=== PATIENT | male | born 1985 | race Caucasian/White ===

== ENCOUNTER 2020-03-13 16:15 | Emergency (ER) | payer OTHER ==
[~2020-03-13] VITALS: Ht 175.3 cm; Wt 93.6 kg
[2020-03-13] MEDS ORDERED: OMEP40CA97 PO (16:28)
[2020-03-13 18:18] LABS: BASO # 0.1 10^3/uL (0.0-0.2); BASO % 0.8 % (0.0-1.0); EOS # 0.2 10^3/uL (0.0-0.5); EOS % 2.7 % (0.0-3.0); HEMATOCRIT 44.8 % (42.0-52.0); HEMOGLOBIN 14.9 g/dl (13.5-17.5); LYMPH # 4.1 10^3/uL (1.5-5.0); LYMPH % 47.4 % (24.0-44.0); MEAN CORPUSCULAR HEMOGLOBIN 29.9 pg (27.0-33.0); MEAN CORPUSCULAR HGB CONC 33.3 g/dl (32.0-36.5); MONO # 0.6 10^3/uL (0.0-0.8); MONO % 7.4 % (0.0-5.0); NEUTROPHILS # 3.6 10^3/uL (1.5-8.5); NEUTROPHILS % 41.5 % (36.0-66.0); PLATELET COUNT, AUTOMATED 313 10^3/uL (150-450); RED BLOOD COUNT 4.98 10^6/uL (4.30-6.10); WHITE BLOOD COUNT 8.6 10^3/uL (4.0-10.0)
[2020-03-13 18:50] LABS: ALBUMIN 4.5 GM/DL (3.2-5.2); BILIRUBIN,DIRECT 0.1 MG/DL (0.0-0.2); BILIRUBIN,TOTAL 0.4 MG/DL (0.2-1.0); TOTAL PROTEIN 7.3 GM/DL (6.4-8.2)
[2020-03-13] MEDS ORDERED: PANTOPRAZOLE 40MG VIAL (C9113 PER 1) IV ONE (19:45)
[2020-03-13] MEDS ORDERED: CARA1TAB6 PO (20:16)
[2020-03-13 21:11] VITALS: BP 132/86
== END 2020-03-13 21:12 | disposition home or self-care (01) ==
LOC: M ED 16:15
DX: R10.12 Left upper quadrant pain (principal)
CPT/HCPCS: 80047; 80076; 81001; 83690; 85025; 96374; 99284; C9113

== ENCOUNTER 2020-09-25 12:11 | Day surgery (SDC) | payer OTHER ==
[~2020-09-25] VITALS: Ht 175.3 cm; Wt 92.0 kg
[~2020-09-25 12:11] MED LIST: CARA1TAB6 PO; NS 1,000 ML IV ONE; OMEP40CA4 PO
[2020-09-25] MEDS ORDERED: fentaNYL 100 MCG/2 ML INJECTION (J3010) As Ordered ONE (15:03)
--- NOTE | 2020-09-25 15:26 | ROOR ---
Patient Name: Javad Garcia Procedure Date: 09/25/2020 3:05 PM Date of : 1985 Age: 35 Room: [facility] Gender: Male Note Status: Finalized Procedure: Upper GI endoscopy Indications: Heartburn, Chronic cough Providers: Albin Jauregui MD Referring MD: RALPH BRIONES MD Requesting Provider: Medicines: Monitored Anesthesia Care Complications: No immediate complications. Procedure: Pre-Anesthesia Assessment: - The heart rate, respiratory rate, oxygen saturations, blood pressure, adequacy of pulmonary ventilation, and response to care were monitored throughout the procedure. The Endoscope was introduced through the mouth, and advanced to the second part of duodenum. The upper GI endoscopy was accomplished without difficulty. The patient tolerated the procedure well. Findings: Mildly severe esophagitis was found at the gastroesophageal junction with one small inflammed nodularity. Biopsies were taken with a cold forceps for histology. The exam of the esophagus was otherwise normal. The entire examined stomach was normal. The examined duodenum was normal. Biopsies were taken with a cold forceps in the middle third of the esophagus, in the gastric antrum and in the second portion of the duodenum for histology. Impression: - Z line at 41 cm. Mildly severe reflux esophagitis with a small inflammatory appearing nodularity. Biopsied. - Normal stomach. - Normal examined duodenum. - Biopsies were taken with a cold forceps for histology in the middle third of the esophagus, in the gastric antrum and in the second portion of the duodenum. Recommendation: - Await pathology results. - Telephone endoscopist for pathology results in 2 weeks. - Follow an antireflux regimen. - Continue present medications. Procedure Code(s): --- Professional --- 02858, Esophagogastroduodenoscopy, flexible, transoral; with biopsy, single or multiple Diagnosis Code(s): --- Professional --- R05, Cough R12, Heartburn K22.8, Other specified diseases of esophagus K21.0, Gastro-esophageal reflux disease with esophagitis CPT copyright 2019 [employer]. All rights reserved. The codes documented in this report are preliminary and upon business machines teacher review may be revised to meet current compliance requirements. Albin Jauregui MD Albin Jauregui MD 09/25/2020 3:26:09 PM Electronically signed by Albin Jauregui MD Number of Addenda: 0 Note Initiated On: 09/25/2020 3:05 PM Estimated Blood Loss: Estimated blood loss: none.
[2020-09-25] MEDS ORDERED: propofoL 200 MG/20 ML VIAL As Ordered ONE (15:36)
--- NOTE | 2020-09-25 15:52 | ROOR ---
Patient Name: Javad Garcia Procedure Date: 09/25/2020 3:06 PM Date of : 1985 Age: 35 Room: [id number] Gender: Male Note Status: Finalized Procedure: Colonoscopy Indications: Screening in patient at increased risk: Colorectal cancer in father before age 60 Providers: Albin Jauregui MD Referring MD: RALPH BRIONES MD Requesting Provider: Medicines: Monitored Anesthesia Care Complications: No immediate complications. Procedure: Pre-Anesthesia Assessment: - The heart rate, respiratory rate, oxygen saturations, blood pressure, adequacy of pulmonary ventilation, and response to care were monitored throughout the procedure. The Colonoscope was introduced through the anus and advanced to the cecum, identified by appendiceal orifice and ileocecal valve. The colonoscopy was performed without difficulty. The patient tolerated the procedure well. The quality of the bowel preparation was fair. Findings: The perianal and digital rectal examinations were normal. Retroflexion in the right colon was performed. The colon (entire examined portion) appeared normal. Impression: - Preparation of the colon was suboptimal/fair. - Small internal hemorrhoids. - The entire colon is otherwise normal. - No specimens collected. Recommendation: - Repeat colonoscopy in 3 years for screening purposes and because the bowel preparation was suboptimal. Procedure Code(s): --- Professional --- 51647, Colonoscopy, flexible; diagnostic, including collection of specimen(s) by brushing or washing, when performed (separate procedure) Diagnosis Code(s): --- Professional --- Z80.0, Family history of malignant neoplasm of digestive organs CPT copyright 2019 [employer]. All rights reserved. The codes documented in this report are preliminary and upon horticultural specialty grower review may be revised to meet current compliance requirements. Albin Jauregui MD Albin Jauregui MD 09/25/2020 3:51:41 PM Electronically signed by Albin Jauregui MD Number of Addenda: 0 Note Initiated On: 09/25/2020 3:06 PM Estimated Blood Loss: Estimated blood loss: none.
[2020-09-25 16:05] VITALS: BP 137/74
== END 2020-09-25 16:07 | disposition home or self-care (01) ==
LOC: M OPP 12:11
PROVIDERS: ATTEND Internal Medicine Gastroenterology
DX: Z12.11 Encounter for screening for malignant neoplasm of colon (principal); Z80.0 Family history of malignant neoplasm of digestive organs; K22.8 Other specified diseases of esophagus; K21.00 Gastro-esophageal reflux disease with esophagitis, without bleeding; R12 Heartburn
CPT/HCPCS: 43239; 45378; 88305; J3010

== ENCOUNTER 2021-09-12 02:07 | Emergency (ER) | payer OTHER ==
[~2021-09-12] VITALS: Ht 175.3 cm; Wt 99.9 kg
[~2021-09-12 02:07] MED LIST changes: -NS 1,000 ML IV ONE
[2021-09-12 02:09] VITALS: BP 130/80
[2021-09-12] MEDS ORDERED: PEPT262T2 PO (02:24)
[2021-09-12 05:11] LABS: BASO # 0.1 10^3/uL (0.0-0.2); BASO % 0.5 % (0.0-1.0); EOS # 0.1 10^3/uL (0.0-0.5); EOS % 0.7 % (0.0-3.0); HEMATOCRIT 45.2 % (42.0-52.0); HEMOGLOBIN 15.4 g/dl (13.5-17.5); LYMPH # 2.4 10^3/uL (1.5-5.0); LYMPH % 18.4 % (24.0-44.0); MEAN CORPUSCULAR HEMOGLOBIN 30.1 pg (27.0-33.0); MEAN CORPUSCULAR HGB CONC 34.1 g/dl (32.0-36.5); MEAN CORPUSCULAR VOLUME 88.3 fl (80.0-96.0); MONO # 0.7 10^3/uL (0.0-0.8); MONO % 5.2 % (2.0-8.0); NEUTROPHILS # 9.7 10^3/uL (1.5-8.5); NEUTROPHILS % 74.8 % (36.0-66.0); PLATELET COUNT, AUTOMATED 292 10^3/uL (150-450); RED BLOOD COUNT 5.12 10^6/uL (4.30-6.10); WHITE BLOOD COUNT 12.9 10^3/uL (4.0-10.0)
[2021-09-12 05:32] LABS: ALBUMIN 3.9 GM/DL (3.2-5.2); ALT/SGPT 39 U/L (12-78); AMYLASE 75 U/L (25-115); BILIRUBIN,DIRECT 0.1 MG/DL (0.0-0.2); BILIRUBIN,TOTAL 0.3 MG/DL (0.2-1.0); BLOOD UREA NITROGEN 12 MG/DL (7-18); CALCIUM LEVEL 9.5 MG/DL (8.5-10.1); CARBON DIOXIDE LEVEL 27 MEQ/L (21-32); CHLORIDE LEVEL 110 MEQ/L (98-107); CREATININE FOR GFR 0.97 MG/DL (0.70-1.30); GLOMERULAR FILTRATION RATE > 60.0 (>60); GLUCOSE, FASTING 111 MG/DL (70-100); LIPASE 167 U/L (73-393); POTASSIUM SERUM 4.7 MEQ/L (3.5-5.1); SODIUM LEVEL 143 MEQ/L (136-145)
[2021-09-12] MEDS ORDERED: GI COCKTAIL 50ML BTL(HYOSCYAMINE/MAALOX/LIDOCAINE VISCOUS)(1:3:1) PO ONE (05:40)
== END 2021-09-12 06:17 | disposition home or self-care (01) ==
LOC: M ED 02:07
DX: K52.9 Noninfective gastroenteritis and colitis, unspecified (principal); K21.9 Gastro-esophageal reflux disease without esophagitis; Z79.899 Other long term (current) drug therapy; Z87.19 Personal history of other diseases of the digestive system; Z98.890 Other specified postprocedural states

== ENCOUNTER 2021-10-19 10:52 | Inpatient (IN) | payer OTHER ==
[~2021-10-19] VITALS: Ht 175.3 cm; Wt 96.3 kg
[~2021-10-19 10:52] MED LIST changes: +PEPT262T2 PO
[2021-10-19] MEDS ORDERED: PRIS1TAB PO (11:49)
[2021-10-19 11:59] LABS: HEMATOCRIT 40.7 % (42.0-52.0); HEMOGLOBIN 13.8 g/dl (13.5-17.5); MEAN CORPUSCULAR HEMOGLOBIN 30.1 pg (27.0-33.0); MEAN CORPUSCULAR HGB CONC 33.9 g/dl (32.0-36.5); MEAN CORPUSCULAR VOLUME 88.9 fl (80.0-96.0); PLATELET COUNT, AUTOMATED 274 10^3/uL (150-450); RED BLOOD COUNT 4.58 10^6/uL (4.30-6.10); WHITE BLOOD COUNT 5.7 10^3/uL (4.0-10.0)
[2021-10-19 12:22] LABS: RSV AMPLIFICATION NEGATIVE (NEGATIVE)
[2021-10-19 13:01] LABS: BLOOD UREA NITROGEN 9 MG/DL (7-18); CALCIUM LEVEL 8.7 MG/DL (8.5-10.1); CARBON DIOXIDE LEVEL 24 MEQ/L (21-32); CHLORIDE LEVEL 110 MEQ/L (98-107); CREATININE FOR GFR 0.96 MG/DL (0.70-1.30); GLOMERULAR FILTRATION RATE > 60.0 (>60); GLUCOSE, FASTING 112 MG/DL (70-100); SODIUM LEVEL 139 MEQ/L (136-145)
[2021-10-19 13:02] LABS: ACETAMINOPHEN LEVEL < 2.0 UG/ML (10.0-30.0); ALBUMIN 3.7 GM/DL (3.2-5.2); ALT/SGPT 35 U/L (12-78); BILIRUBIN,DIRECT 0.2 MG/DL (0.0-0.2); BILIRUBIN,TOTAL 0.8 MG/DL (0.2-1.0); ETHYL ALCOHOL (ETHANOL) < 0.003 % (0.000-0.010); SALICYLATE LEVEL < 1.7 MG/DL (5.0-30.0); TOTAL PROTEIN 6.4 GM/DL (6.4-8.2)
[2021-10-19 13:04] LABS: AMPHETAMINES LEVEL URINE NEGATIVE (NEGATIVE); BARBITURATES URINE NEGATIVE (NEGATIVE); BENZODIAZEPINES URINE NEGATIVE (NEGATIVE); CANNABINOIDS URINE NEGATIVE (NEGATIVE); COCAINE METABOLITE URINE NEGATIVE (NEGATIVE); METHADONE URINE NEGATIVE (NEGATIVE); OPIATES URINE NEGATIVE (NEGATIVE); PHENCYCLIDINE URINE NEGATIVE (NEGATIVE)
[2021-10-19] MEDS ORDERED: OMEP1CAP73 PO (15:20)
[2021-10-19] MEDS ORDERED: HOME MED LIST COMPLETE! XX SCH (15:20)
[2021-10-20] MEDS ORDERED: OMEPRAZOLE 20MG CAP PO PRN ×2 (09:55→16:55)
[2021-10-20] MEDS ORDERED: OLANZapine ORAL DISINTEGRATING TAB 5MG PO PRN (16:55)
[2021-10-20] MEDS ORDERED: MOM 30ML SUSPENSION UDC PO PRN (16:55)
[2021-10-20] MEDS ORDERED: MAALOX 30 ML SUSP *UDC PO PRN (16:55)
[2021-10-20 20:29] VITALS: BP 137/87
[2021-10-20] MEDS: traZODone 50 MG TAB PO PRN (22:01)
[2021-10-20] MEDS: IBUPROFEN 400MG TAB PO PRN (22:01)
[2021-10-21 06:30] VITALS: BP 116/61
[2021-10-21] MEDS ORDERED: DESVENLAFAXINE ER 50 MG TABLET (PRISTIQ) PO SCH ×2 (09:00)
[2021-10-21] MEDS: DESVENLAFAXINE ER 50 MG TABLET (PRISTIQ) PO SCH (14:26)
[2021-10-21 16:51] VITALS: BP 138/85
[2021-10-21] MEDS: traZODone 50 MG TAB PO PRN (20:30)
[2021-10-21] MEDS: IBUPROFEN 400MG TAB PO PRN (20:31)
[2021-10-22 06:51] VITALS: BP 106/60
[2021-10-22] MEDS: DESVENLAFAXINE ER 50 MG TABLET (PRISTIQ) PO SCH (08:56)
[2021-10-22] MEDS: NICOTINE POLACRILEX 2 MG GUM PO PRN (18:25)
[2021-10-22 18:38] VITALS: BP 123/81
[2021-10-22] MEDS: traZODone 50 MG TAB PO PRN (20:12)
[2021-10-23 07:00] VITALS: BP 115/66
[2021-10-23] MEDS: NICOTINE POLACRILEX 2 MG GUM PO PRN ×2 (08:39→18:06)
[2021-10-23] MEDS: DESVENLAFAXINE ER 50 MG TABLET (PRISTIQ) PO SCH (08:39)
[2021-10-23 16:17] VITALS: BP 134/79
[2021-10-23] MEDS: traZODone 50 MG TAB PO PRN (20:27)
[2021-10-24 06:32] VITALS: BP 107/53
[2021-10-24] MEDS: DESVENLAFAXINE ER 50 MG TABLET (PRISTIQ) PO SCH (07:58)
[2021-10-24 16:47] VITALS: BP 137/78
[2021-10-24] MEDS: traZODone 50 MG TAB PO PRN (22:27)
[2021-10-25 06:23] VITALS: BP 118/56
[2021-10-25] MEDS: DESVENLAFAXINE ER 50 MG TABLET (PRISTIQ) PO SCH (08:17)
[2021-10-25] MEDS: NICOTINE POLACRILEX 2 MG GUM PO PRN (13:00)
[2021-10-25 17:15] VITALS: BP 122/67
[2021-10-25] MEDS: traZODone 50 MG TAB PO PRN (20:39)
[2021-10-26 06:29] VITALS: BP 111/54
[2021-10-26] MEDS: DESVENLAFAXINE ER 50 MG TABLET (PRISTIQ) PO SCH (07:42)
[2021-10-26 18:41] VITALS: BP 121/76
[2021-10-26] MEDS: traZODone 50 MG TAB PO PRN (20:25)
[2021-10-27 06:38] VITALS: BP 118/70
[2021-10-27] MEDS: DESVENLAFAXINE ER 50 MG TABLET (PRISTIQ) PO SCH (08:39)
[2021-10-27 18:26] VITALS: BP 119/57
[2021-10-27] MEDS: traZODone 50 MG TAB PO PRN (20:32)
[2021-10-28] MEDS: DESVENLAFAXINE ER 50 MG TABLET (PRISTIQ) PO SCH (09:43)
[2021-10-28 18:00] VITALS: BP 139/95
[2021-10-28] MEDS: traZODone 50 MG TAB PO PRN (21:14)
[2021-10-29 06:50] VITALS: BP 155/84
[2021-10-29] MEDS: DESVENLAFAXINE ER 50 MG TABLET (PRISTIQ) PO SCH (07:28)
[2021-10-29 18:38] VITALS: BP 131/82
[2021-10-29] MEDS: traZODone 50 MG TAB PO PRN (21:33)
[2021-10-30 06:28] VITALS: BP 129/67
[2021-10-30] MEDS: DESVENLAFAXINE ER 50 MG TABLET (PRISTIQ) PO SCH (09:16)
== END 2021-10-30 15:10 | disposition home or self-care (01) | DRG 882 ==
LOC: M ED 10:52 → EDBD 10:52 → M ED INP 10-20 16:51 → M PSY 10-20 20:26
PROVIDERS: ADMIT Psychiatry & Neurology Psychiatry; ATTEND Psychiatry & Neurology Psychiatry
DX: F43.10 Post-traumatic stress disorder, unspecified (principal); R45.851 Suicidal ideations; F32.9 Major depressive disorder, single episode, unspecified; F17.290 Nicotine dependence, other tobacco product, uncomplicated; Z91.82 Personal history of military deployment; Z63.32 Other absence of family member; Z65.3 Problems related to other legal circumstances; Z79.899 Other long term (current) drug therapy; Z81.1 Family history of alcohol abuse and dependence; K21.9 Gastro-esophageal reflux disease without esophagitis; Z87.81 Personal history of (healed) traumatic fracture; Z56.6 Other physical and mental strain related to work